=== PATIENT | male | born 1960 | race Hispanic/Latino ===

== ENCOUNTER 2018-01-02 16:29 | Inpatient (IN) | payer OTHER ==
[~2018-01-02] VITALS: Ht 170.2 cm; Wt 124.9 kg
[2018-01-02 17:10] LABS: BILIRUBIN,URINE Negative (NEGATIVE); COLOR,URINE Yellow (YELLOW); GLUCOSE, URINE (UA) 250 mg/dL (NEGATIVE); KETONES,URINE Trace mg/dL (NEGATIVE); LEUKOCYTE ESTERASE ,URINE Large (NEGATIVE); NITRATE,URINE Negative (NEGATIVE); OCCULT BLOOD,URINE Negative (NEGATIVE); PH,URINE 5.5 (5.0-8.0); PROTEIN,URINE Negative (NEGATIVE)
[2018-01-02 17:11] LABS: APPEARANCE,URINE SLIGHTLY CLOUDY (CLEAR)
[2018-01-02 17:20] LABS: WBC,URINE 26-50 /HPF (0-1)
[2018-01-02 17:21] LABS: BACTERIA,URINE Few /HPF (None Seen); MUCUS,URINE Rare LPF (None Seen); RBC,URINE 0-1 /HPF (0-1); SQUAMOUS EPITHELIAL CELL,UR Few /LPF (0-2)
[2018-01-02 17:47] LABS: BASOPHILS % (AUTO) 0.5 % (0.0-5.0); EOSINOPHILS % (AUTO) 4.5 % (0.0-8.0); HEMATOCRIT 44.2 % (42-54); LYMPHOCYTES % (AUTO) 39.9 % (21.0-51.0); MEAN CORPUSCULAR HGB CONC 32.9 g/dL (32.0-36.0); MEAN CORPUSCULAR VOLUME 88.2 fL (79-99); NEUTROPHILS % (AUTO) 47.1 % (40.0-77.0); PLATELET COUNT (AUTO) 189 K/uL (130-400); RED BLOOD CELL COUNT(AUTO) 5.01 MIL/uL (4.50-6.20); WHITE BLOOD COUNT (AUTO) 8.3 K/uL (4.8-10.8)
[2018-01-02 18:02] LABS: CREATININE 1.1 mg/dL (0.5-1.5)
[2018-01-02 18:06] LABS: ALBUMIN 3.8 g/dL (3.5-5.0); BILIRUBIN,TOTAL 0.2 mg/dL (0.2-1.0); TOTAL PROTEIN, SERUM 7.5 g/dL (6.0-8.3)
[2018-01-02] MEDS ORDERED: MEROPENEM 1 GM VIAL ONE (19:52)
[2018-01-02] MEDS: SODIUM CHLORIDE 0.9% 1000ML 1,000 ML IV SCH (20:15)
[2018-01-02] MEDS ORDERED: SODIUM CHLORIDE 0.9% 1000ML 1,000 ML IV ONE (22:12)
[2018-01-02 22:45] VITALS: BP 149/95
[2018-01-02] MEDS ORDERED: ASPI-555 PO (23:16)
[2018-01-02] MEDS ORDERED: CIPR-278 PO (23:16)
[2018-01-02] MEDS ORDERED: METH500T6 PO (23:16)
[2018-01-02] MEDS ORDERED: VITA400C19 PO (23:16)
[2018-01-02] MEDS ORDERED: METF500T6 PO (23:16)
[2018-01-02] MEDS ORDERED: LISI10TA7 PO (23:16)
[2018-01-02] MEDS ORDERED: [UNRECOGNIZED DRUG - OTHER] PO (23:16)
[2018-01-02] MEDS ORDERED: METF10004 PO (23:16)
[2018-01-03] VITALS: BP 149/96
[2018-01-03] MEDS ORDERED: ONDANSETRON HCL 4 MG/2 ML VIAL IV PRN (02:45)
[2018-01-03] MEDS ORDERED: ACETAMINOPHEN 325 MG TAB PO PRN (02:45)
[2018-01-03] MEDS ORDERED: HYDRALAZINE HCL 20 MG/ML VIAL IV PRN (02:45)
[2018-01-03] MEDS ORDERED: GLUCAGON 1MG KIT 1 MG ML IM PRN (03:00)
[2018-01-03] MEDS ORDERED: DEXTROSE 50%-WATER 50 ML DISP.SYRIN IV PRN (03:00)
[2018-01-03] MEDS: MEROPENEM 1 GM VIAL IVP SCH ×3 (03:21→18:28)
[2018-01-03 04:00] VITALS: BP 154/96
[2018-01-03 05:30] LABS: HEMATOCRIT 42.1 % (42-54); MEAN CORPUSCULAR HEMOGLOBIN 29.4 pg (27.0-33.0); MEAN CORPUSCULAR HGB CONC 33.7 g/dL (32.0-36.0); MEAN CORPUSCULAR VOLUME 87.3 fL (79-99); NUCLEATED RED BLOOD CELLS 0.1 % (0.0-0.19); PLATELET COUNT (AUTO) 181 K/uL (130-400); RED BLOOD CELL COUNT(AUTO) 4.82 MIL/uL (4.50-6.20); RED CELL DISTRIBUTION WIDTH 13.1 % (11.0-15.5); WHITE BLOOD COUNT (AUTO) 7.9 K/uL (4.8-10.8)
[2018-01-03 05:42] LABS: CREATININE 0.9 mg/dL (0.5-1.5); POTASSIUM 3.9 mmol/L (3.5-5.1)
[2018-01-03] MEDS: INSULIN LISPRO 100 UNIT/ML 3ML SQ SCH ×4 (06:20→20:38)
[2018-01-03 08:00] VITALS: BP 144/92
[2018-01-03] MEDS: FAMOTIDINE 20MG TAB 20 MG TAB PO SCH ×2 (08:33→20:37)
[2018-01-03] MEDS: SODIUM CHLORIDE 0.9% 1000ML 1,000 ML IV SCH ×2 (09:35→19:31)
[2018-01-03 11:00] VITALS: BP 154/91
[2018-01-03 16:00] VITALS: BP 136/90
[2018-01-03 20:00] VITALS: BP 135/88
[2018-01-04] VITALS (7 sets, daily range): BP systolic 131–153; BP diastolic 68–98
[2018-01-04] MEDS: MEROPENEM 1 GM VIAL IVP SCH ×3 (03:51→21:18)
[2018-01-04] MEDS: SODIUM CHLORIDE 0.9% 1000ML 1,000 ML IV SCH ×2 (03:56→15:22)
[2018-01-04] MEDS: INSULIN LISPRO 100 UNIT/ML 3ML SQ SCH ×4 (06:52→21:00)
[2018-01-04] MEDS: FAMOTIDINE 20MG TAB 20 MG TAB PO SCH ×2 (08:48→21:17)
[2018-01-04] MEDS ORDERED: CYCLOBENZAPRINE HCL 10 MG TABLET PO PRN (09:15)
[2018-01-04] MEDS: COLCHICINE PO SCH (21:00)
[2018-01-05] MEDS: SODIUM CHLORIDE 0.9% 1000ML 1,000 ML IV SCH ×3 (02:14→14:55)
[2018-01-05] MEDS: MEROPENEM 1 GM VIAL IVP SCH ×3 (03:29→19:00)
[2018-01-05 04:00] VITALS: BP 144/92
[2018-01-05] MEDS: INSULIN LISPRO 100 UNIT/ML 3ML SQ SCH ×3 (06:35→16:30)
[2018-01-05 07:45] VITALS: BP 132/86
[2018-01-05] MEDS ORDERED: METFORMIN HCL 500 MG TABLET PO SCH ×2 (08:00→17:00)
[2018-01-05] MEDS ORDERED: VITAMIN E 400 UNIT CAPSULE PO SCH (09:00)
[2018-01-05] MEDS ORDERED: ASPIRIN 81 MG EC TAB PO SCH (09:00)
[2018-01-05] MEDS: COLCHICINE PO SCH (09:00)
[2018-01-05] MEDS ORDERED: LISINOPRIL 10 MG TABLET PO SCH (09:00)
[2018-01-05] MEDS: FAMOTIDINE 20MG TAB 20 MG TAB PO SCH (09:37)
[2018-01-05 10:17] LABS: INR 0.97 (0.85-1.15); PARTIAL THROMBOPLASTIN TIME 25.5 SEC (26.3-35.5); PROTHROMBIN TIME 10.2 SEC (9.6-11.6)
[2018-01-05 12:00] VITALS: BP 136/95
[2018-01-05 16:00] VITALS: BP 141/89
== END 2018-01-05 21:13 | disposition home or self-care (01) | DRG 463 ==
LOC: EDH 16:29 → EDHIP 19:15 → 4BH 21:40 → 4CH 01-04 11:50
PROVIDERS: ADMIT Family Medicine; ATTEND Family Medicine
DX: N30.01 Acute cystitis with hematuria (principal); E66.01 Morbid (severe) obesity due to excess calories; E11.9 Type 2 diabetes mellitus without complications; I10 Essential (primary) hypertension; Z16.24 Resistance to multiple antibiotics; B96.20 Unspecified Escherichia coli [E. coli] as the cause of diseases classified elsewhere; Z68.41 Body mass index [BMI] 40.0-44.9, adult; Z90.79 Acquired absence of other genital organ(s)
CPT/HCPCS: 36415; 71045; 76770; 80048; 80053; 81001; 82948; 85025; 85027; 85610; 85730; 87040; 87088; 87186; 87804; A4218; J2185; J7030

== ENCOUNTER 2018-02-14 21:06 | Emergency (ER) | payer OTHER ==
[~2018-02-14 21:06] MED LIST: ASPI-555 PO; CIPR-278 PO; LISI10TA7 PO; METF10004 PO; METF500T6 PO; METH500T6 PO; VITA400C19 PO; [UNRECOGNIZED DRUG - OTHER] PO
[2018-02-14 22:26] LABS: BASOPHILS % (AUTO) 0.3 % (0.0-5.0); EOSINOPHILS % (AUTO) 2.6 % (0.0-8.0); HEMATOCRIT 46.9 % (42-54); MEAN CORPUSCULAR HEMOGLOBIN 28.9 pg (27.0-33.0); MEAN CORPUSCULAR HGB CONC 32.8 g/dL (32.0-36.0); MEAN CORPUSCULAR VOLUME 88.3 fL (79-99); MONOCYTES % (AUTO) 6.5 % (3.0-13.0); NEUTROPHILS % (AUTO) 67.6 % (40.0-77.0); NUCLEATED RED BLOOD CELLS 0.1 % (0.0-0.19); PLATELET COUNT (AUTO) 242 K/uL (130-400); RED BLOOD CELL COUNT(AUTO) 5.31 MIL/uL (4.50-6.20); RED CELL DISTRIBUTION WIDTH 13.3 % (11.0-15.5); WHITE BLOOD COUNT (AUTO) 12.7 K/uL (4.8-10.8)
[2018-02-14 22:34] LABS: POTASSIUM 3.9 mmol/L (3.5-5.1)
[2018-02-14 22:39] LABS: BILIRUBIN,TOTAL 0.2 mg/dL (0.2-1.0); TOTAL PROTEIN, SERUM 8.4 g/dL (6.0-8.3)
[2018-02-14 22:53] LABS: APPEARANCE,URINE Clear (CLEAR); BILIRUBIN,URINE Negative (NEGATIVE); COLOR,URINE Yellow (YELLOW); GLUCOSE, URINE (UA) >=1000 mg/dL (NEGATIVE); KETONES,URINE Negative (NEGATIVE); LEUKOCYTE ESTERASE ,URINE Small (NEGATIVE); NITRATE,URINE Negative (NEGATIVE); OCCULT BLOOD,URINE Large (NEGATIVE); PROTEIN,URINE Negative (NEGATIVE); UROBILINOGEN,URINE 0.2 mg/dL (0.2-1.0)
[2018-02-14 23:07] LABS: BACTERIA,URINE Few /HPF (None Seen)
[2018-02-14] MEDS ORDERED: TAMSULOSIN HCL 0.4 MG CAP.ER.24H ONE (23:53)
== END 2018-02-15 00:28 | disposition home or self-care (01) ==
LOC: EDH 21:06
DX: R33.9 Retention of urine, unspecified (principal); E11.9 Type 2 diabetes mellitus without complications; I10 Essential (primary) hypertension
CPT/HCPCS: 36415; 51702; 80053; 81001; 85025

== ENCOUNTER 2018-03-03 17:00 | Emergency (ER) | payer OTHER ==
[2018-03-03] MEDS ORDERED: LIDOCAINE HCL 2% JELLY 5 ML ONE (17:30)
== END 2018-03-03 18:15 | disposition home or self-care (01) ==
LOC: EDH 17:00
DX: R33.9 Retention of urine, unspecified (principal); I10 Essential (primary) hypertension; E11.9 Type 2 diabetes mellitus without complications
CPT/HCPCS: 99281

== ENCOUNTER 2018-03-06 14:35 | Emergency (ER) | payer OTHER ==
[2018-03-06] MEDS ORDERED: LIDOCAINE HCL 2% JELLY 5 ML ONE (15:49)
[2018-03-06 15:58] LABS: APPEARANCE,URINE Clear (CLEAR); BILIRUBIN,URINE Negative (NEGATIVE); COLOR,URINE Yellow (YELLOW); GLUCOSE, URINE (UA) 500 mg/dL (NEGATIVE); KETONES,URINE Negative (NEGATIVE); LEUKOCYTE ESTERASE ,URINE Trace (NEGATIVE); NITRATE,URINE Negative (NEGATIVE); OCCULT BLOOD,URINE Large (NEGATIVE); PH,URINE 6.5 (5.0-8.0); PROTEIN,URINE Negative (NEGATIVE)
[2018-03-06 16:17] LABS: BACTERIA,URINE None Seen /HPF (None Seen); RBC,URINE 26-50 /HPF (0-1); WBC,URINE 0-1 /HPF (0-1)
[2018-03-06] MEDS ORDERED: LIDOCAINE HCL 2% VISCOUS 15 ML UDCUP ONE (16:28)
== END 2018-03-06 17:47 | disposition home or self-care (01) ==
LOC: EDH 14:35
DX: R33.9 Retention of urine, unspecified (principal); R30.0 Dysuria; E11.9 Type 2 diabetes mellitus without complications; I10 Essential (primary) hypertension
CPT/HCPCS: 81001

== ENCOUNTER 2019-10-04 08:28 | Emergency (ER) | payer MEDICAID ==
[~2019-10-04 08:28] MED LIST changes: +CEPH500B PO; -CIPR-278 PO; +METF-444 PO; +METF-446 PO; -METF10004 PO; -METF500T6 PO
[2019-10-04] MEDS ORDERED: HYDROCODONE/ACETAMINOPHEN 10/325 MG TAB ONE (09:10)
== END 2019-10-04 11:10 | disposition home or self-care (01) ==
LOC: EDH 08:28
DX: M23.8X2 Other internal derangements of left knee (principal); E11.9 Type 2 diabetes mellitus without complications; I10 Essential (primary) hypertension; R97.20 Elevated prostate specific antigen [PSA]; X58.XXXA Exposure to other specified factors, initial encounter; Y93.89 Activity, other specified; Y92.098 Other place in other non-institutional residence as the place of occurrence of the external cause; Y99.8 Other external cause status
CPT/HCPCS: 29505; 73562

== ENCOUNTER 2020-10-01 17:59 | Inpatient (IN) | payer MEDICAID ==
[2020-10-01] VITALS (11 sets, daily range): BP systolic 109–135; BP diastolic 73–88
[~2020-10-01] VITALS: Ht 165.1 cm; Wt 113.4 kg
[~2020-10-01 17:59] MED LIST changes: -ASPI-555 PO; +ASPI-556 PO
[2020-10-01 18:38] LABS: BASOPHILS % (AUTO) 0.3 % (0.0-5.0); EOSINOPHILS % (AUTO) 0.8 % (0.0-8.0); HEMATOCRIT 49.7 % (42-54); MEAN CORPUSCULAR HEMOGLOBIN 28.8 pg (27.0-33.0); MEAN CORPUSCULAR HGB CONC 32.6 g/dL (32.0-36.0); MEAN CORPUSCULAR VOLUME 88.4 fL (79-99); MONOCYTES % (AUTO) 4.5 % (3.0-13.0); NEUTROPHILS % (AUTO) 77.1 % (40.0-77.0); PLATELET COUNT (AUTO) 65 K/uL (130-400); RED BLOOD CELL COUNT(AUTO) 5.62 MIL/uL (4.50-6.20); RED CELL DISTRIBUTION WIDTH 12.2 % (11.0-15.5); WHITE BLOOD COUNT (AUTO) 16.3 K/uL (4.8-10.8)
[2020-10-01] MEDS ORDERED: LIDOCAINE HCL 2% VISCOUS 15 ML UDCUP ONE (18:39)
[2020-10-01] MEDS ORDERED: ONDANSETRON HCL 4 MG/2 ML VIAL ONE (18:39)
[2020-10-01 18:40] LABS: APPEARANCE,URINE CLOUDY (CLEAR); BILIRUBIN,URINE NEGATIVE (NEGATIVE); COLOR,URINE YELLOW (YELLOW); GLUCOSE, URINE (UA) >=1000 mg/dL (NEGATIVE); KETONES,URINE NEGATIVE (NEGATIVE); LEUKOCYTE ESTERASE ,URINE SMALL (NEGATIVE); NITRATE,URINE NEGATIVE (NEGATIVE); OCCULT BLOOD,URINE LARGE (NEGATIVE); PROTEIN,URINE TRACE mg/dL (NEGATIVE); UROBILINOGEN,URINE 0.2 mg/dL (0.2-1.0)
[2020-10-01] MEDS ORDERED: MORPHINE SULFATE 4 MG/1ML SYG ONE (18:40)
[2020-10-01 18:56] LABS: BACTERIA,URINE Many /HPF (None Seen); MUCUS,URINE Few LPF (None Seen); SQUAMOUS EPITHELIAL CELL,UR 0-2 /HPF (0-2)
[2020-10-01] MEDS ORDERED: ZINC OXIDE OINT 30GM TUBE TP ONE (19:30)
[2020-10-01 20:17] LABS: PLATELET MORPHOLOGY COMMENT DECREASED
[2020-10-01] MEDS ORDERED: CEFTRIAXONE SODIUM 1 GM ONE (20:35)
[2020-10-01 20:49] LABS: INR 0.94 (0.85-1.15); PARTIAL THROMBOPLASTIN TIME 25.6 SEC (26.3-35.5); PROTHROMBIN TIME 10.2 SEC (9.6-11.6)
[2020-10-01] MEDS: ZOSYN 3.375GM+NS 50ML 50 ML IV SCH (21:00)
[2020-10-01] MEDS ORDERED: METOCLOPRAMIDE 10 MG/2 ML VIAL ONE (21:13)
[2020-10-01] MEDS ORDERED: IOHEXOL-350 50ML VIAL IV ONE (21:29)
[2020-10-01] MEDS ORDERED: ONDANSETRON HCL 4 MG/2 ML VIAL IVP PRN (21:30)
[2020-10-01] MEDS ORDERED: GLUCAGON 1MG KIT 1 MG ML IM PRN (21:30)
[2020-10-01] MEDS ORDERED: DEXTROSE 50%-WATER 50 ML DISP.SYRIN IV PRN (21:30)
[2020-10-01] MEDS ORDERED: MORPHINE SULFATE 2 MG/ML 1ML SYG IVP PRN (21:30)
[2020-10-01] MEDS ORDERED: ZOSYN 3.375GM+NS 50ML 50 ML IV ONE (21:56)
[2020-10-01] MEDS ORDERED: ROCURONIUM 10MG/1ML SYR 10 MG/ML ML ONE (22:09)
[2020-10-01] MEDS ORDERED: SUCCINYLCHOLINE 200MG/10ML SYR ONE (22:09)
[2020-10-01] MEDS ORDERED: LIDOCAINE PF 2% 5ML ABBOJECT ONE (22:09)
[2020-10-01] MEDS ORDERED: FENTANYL CITRATE PF 50 MCG/1 ML 2ML VIAL ONE (22:10)
[2020-10-01] MEDS ORDERED: PROPOFOL 10 MG/ML 20ML VIAL IV ONE ×2 (22:10→22:21)
[2020-10-01] MEDS ORDERED: EPHEDRINE SULFATE 50 MG/ML AMPULE ONE (22:34)
[2020-10-02] VITALS (15 sets, daily range): BP systolic 113–150; BP diastolic 75–91
[2020-10-02] MEDS: ACETAMINOPHEN 325 MG TAB PO PRN ×2 (03:36→20:15)
[2020-10-02 03:55] LABS: HEMATOCRIT 40.8 % (42-54); MEAN CORPUSCULAR HEMOGLOBIN 29.1 pg (27.0-33.0); MEAN CORPUSCULAR HGB CONC 32.6 g/dL (32.0-36.0); MEAN CORPUSCULAR VOLUME 89.3 fL (79-99); RED BLOOD CELL COUNT(AUTO) 4.57 MIL/uL (4.50-6.20); RED CELL DISTRIBUTION WIDTH 12.5 % (11.0-15.5); WHITE BLOOD COUNT (AUTO) 12.7 K/uL (4.8-10.8)
[2020-10-02 04:03] LABS: CREATININE 1.1 mg/dL (0.5-1.5); MAGNESIUM 1.7 mg/dL (1.80-2.40); POTASSIUM 4.2 mmol/L (3.5-5.1)
[2020-10-02] MEDS: ZOSYN 3.375GM+NS 50ML 50 ML IV SCH ×3 (04:46→20:14)
[2020-10-02] MEDS: INSULIN R PO SS1 SQ SCH ×4 (05:54→20:17)
[2020-10-02] MEDS ORDERED: METF-446 PO (10:58)
[2020-10-02] MEDS ORDERED: LISI10TA7 PO (10:58)
[2020-10-02] MEDS ORDERED: TAMS-1 PO (10:58)
[2020-10-02] MEDS ORDERED: LISINOPRIL 10 MG TABLET ONE (12:40)
[2020-10-02] MEDS ORDERED: TAMSULOSIN HCL 0.4 MG CAP.ER.24H ONE (12:41)
[2020-10-02] MEDS: METFORMIN HCL 500 MG TABLET PO SCH (16:46)
[2020-10-02] MEDS ORDERED: NON-FORMULARY MEDICATION 1 EACH (Metformin HCl 1,000 MG) PO SCH (17:00)
[2020-10-03] VITALS (7 sets, daily range): BP systolic 129–161; BP diastolic 79–100
[2020-10-03] MEDS: ZOSYN 3.375GM+NS 50ML 50 ML IV SCH ×3 (04:53→20:48)
[2020-10-03] MEDS: INSULIN R PO SS1 SQ SCH ×4 (05:45→20:45)
[2020-10-03] MEDS: TAMSULOSIN HCL 0.4 MG CAP.ER.24H PO SCH (09:07)
[2020-10-03] MEDS: LISINOPRIL 10 MG TABLET PO SCH (09:07)
[2020-10-03] MEDS: METFORMIN HCL 500 MG TABLET PO SCH ×2 (09:08→17:09)
[2020-10-04 03:10] VITALS: BP 156/83
[2020-10-04] MEDS: ZOSYN 3.375GM+NS 50ML 50 ML IV SCH (05:12)
[2020-10-04] MEDS: INSULIN R PO SS1 SQ SCH ×2 (05:50→11:30)
[2020-10-04] MEDS: METFORMIN HCL 500 MG TABLET PO SCH (07:21)
[2020-10-04] MEDS: TAMSULOSIN HCL 0.4 MG CAP.ER.24H PO SCH (07:49)
[2020-10-04] MEDS: LISINOPRIL 10 MG TABLET PO SCH (07:49)
[2020-10-04 08:00] VITALS: BP 126/80
[2020-10-04 13:13] VITALS: BP 128/88
== END 2020-10-04 15:00 | disposition home or self-care (01) | DRG 463 ==
LOC: EDH 17:59 → EDHIP 18:00 → 3AH 23:44
PROVIDERS: ADMIT Internal Medicine Infectious Disease; ATTEND Internal Medicine Infectious Disease
PROC: 0T7D8ZZ Dilation of Urethra, Via Natural or Artificial Opening Endoscopic (ICD-10-PCS; principal; 2020-10-01 22:07)
PROC: 0T9B80Z Drainage of Bladder with Drainage Device, Via Natural or Artificial Opening Endoscopic (ICD-10-PCS; 2020-10-01 22:07)
DX: N39.0 Urinary tract infection, site not specified (principal); D69.6 Thrombocytopenia, unspecified; E11.9 Type 2 diabetes mellitus without complications; N40.0 Benign prostatic hyperplasia without lower urinary tract symptoms; N35.912 Unspecified bulbous urethral stricture, male; E66.01 Morbid (severe) obesity due to excess calories; Z68.42 Body mass index [BMI] 45.0-49.9, adult; I10 Essential (primary) hypertension; N40.1 Benign prostatic hyperplasia with lower urinary tract symptoms; Z83.3 Family history of diabetes mellitus; Z91.19 Patient's noncompliance with other medical treatment and regimen
CPT/HCPCS: 36415; 74176; 74420; 74430; 80048; 81001; 82948; 83605; 83690; 83735; 85025; 85027; 85610; 85730; 87040; 87077; 87088; 87186; A4346; A4354; C1758; C1769; G0378; J0330; J0696; J2001; J2270; J2405; J2543; J2704; J2765; J3010; J3490; Q9967

== ENCOUNTER → 2020-10-31 | Outpatient (CLI) | payer MEDICAID ==
[~2020-10-31] MED LIST changes: -ASPI-556 PO; -CEPH500B PO; -METF-444 PO; -METH500T6 PO; +TAMS-1 PO; -VITA400C19 PO; -[UNRECOGNIZED DRUG - OTHER] PO
== END | disposition home or self-care (01) ==
LOC: RAH 11:36
PROVIDERS: ATTEND Urology
DX: N45.1 Epididymitis (principal)
CPT/HCPCS: 76870